=== PATIENT | female | born 1965 | race Caucasian/White ===

== ENCOUNTER 2016-05-30 09:07 | Outpatient (CLI) ==
[2016-05-30 09:38] LABS: HEMATOCRIT 36.4 % (37.0-47.0); HEMOGLOBIN 11.7 g/dl (12.0-16.0); MEAN CORPUSCULAR HEMOGLOBIN 30.3 pg (27.0-31.0); MEAN CORPUSCULAR HGB CONC 32.1 (31.8-35.4); MEAN CORPUSCULAR VOLUME 94.3 fl (81.0-99.0); RED BLOOD COUNT 3.86 10^6/ul (4.20-5.40); WHITE BLOOD COUNT 5.08 K/ul (4.6-10.2)
[2016-05-30 09:56] LABS: ALBUMIN 3.7 g/dL (3.4-5.0); ALBUMIN/GLOBULIN RATIO 0.95; ANION GAP 10.1; BILIRUBIN,TOTAL 0.33 mg/dL (0.00-1.20); BUN/CREATININE RATIO 15.66; CALCIUM 9.1 mg/dL (8.2-10.2); CREATININE 0.83 mg/dL (0.60-1.30); POTASSIUM 4.1 mmol/L (3.5-5.10); TOTAL PROTEIN 7.6 g/dL (6.4-8.2)
== END 2016-05-30 09:08 | disposition home or self-care (01) ==
LOC: LAB 09:07
PROVIDERS: ATTEND Nurse Practitioner Family
DX: B18.2 Chronic viral hepatitis C (principal)
CPT/HCPCS: 36415; 80053; 85027; 87522

== ENCOUNTER 2016-06-19 13:19 | Outpatient (CLI) ==
--- NOTE | 2016-06-19 14:26 | US ---
EXAM: Pelvic ultrasound. History: Pelvic mass. Comparison: None available. Technique: Multiple sonographic images through the pelvis were obtained. Color duplex Doppler was used to interrogate vascular flow. Findings: The uterus measures 7.5 cm x 4.3 cm x 6.7 cm. There are at least two heterogeneous uterine masses c ontaining calcification and shadowing with the largest measuring 4.8 cm. Neither ovary is enlarged. Small dominant follicle within the left ovary measuring 0.6 cm. The endometrium measures 0.4 cm in thickness. Trace fluid seen within the cul-de-sac. Impression: 1. Partially calcified uterine masses most likely represent fibroids. 2. Trace fluid in the cul-de-sac.
== END 2016-06-19 13:20 | disposition home or self-care (01) ==
LOC: RAD 13:19
PROVIDERS: ATTEND Family Medicine
DX: R19.00 Intra-abdominal and pelvic swelling, mass and lump, unspecified site (principal)

== ENCOUNTER 2016-06-20 08:51 | Outpatient (CLI) ==
--- NOTE | 2016-06-20 10:08 | MAMMO ---
EXAM: Digital screening mammogram HISTORY: Screening mammogram COMPARISON: Diagnostic mammogram 10/29/2014 and screening mammogram 10/16/2014 and screening mammogr am 08/20/2008 FINDINGS: Bilateral CC and MLO views of the breasts were performed digitally and demonstrate scatte red fibroglandular breast density (25 - 50%). There is mildly dense parenchyma in the superior later al bilateral breasts. Calcifications are identified in both breasts and unchanged from previous exa mination. There is no abnormal nodule or calcification. There is no significant interval change. IMPRESSION: No new or suspicious calcification or nodule RECOMMENDATION: Annual screening mammogram BIRADS category II: Benign findings
== END 2016-06-20 08:52 | disposition home or self-care (01) ==
LOC: RAD 08:51
PROVIDERS: ATTEND Family Medicine
DX: Z12.31 Encounter for screening mammogram for malignant neoplasm of breast (principal)

== ENCOUNTER 2016-08-21 16:32 | Outpatient (CLI) ==
[2016-08-21 16:44] LABS: HEMATOCRIT 38.9 % (37.0-47.0); MEAN CORPUSCULAR HEMOGLOBIN 31.2 pg (27.0-31.0); MEAN CORPUSCULAR HGB CONC 33.4 (31.8-35.4); MEAN CORPUSCULAR VOLUME 93.3 fl (81.0-99.0); RED BLOOD COUNT 4.17 10^6/ul (4.20-5.40); WHITE BLOOD COUNT 5.35 K/ul (4.6-10.2)
[2016-08-21 17:03] LABS: ALBUMIN 3.9 g/dL (3.4-5.0); ALBUMIN/GLOBULIN RATIO 1.03; ANION GAP 10.9; BILIRUBIN,TOTAL 0.32 mg/dL (0.00-1.20); BUN/CREATININE RATIO 14.94; CALCIUM 9.4 mg/dL (8.2-10.2); CREATININE 0.87 mg/dL (0.60-1.30); POTASSIUM 3.9 mmol/L (3.5-5.10); TOTAL PROTEIN 7.7 g/dL (6.4-8.2)
== END 2016-08-21 16:33 | disposition home or self-care (01) ==
LOC: LAB 16:32
PROVIDERS: ATTEND Nurse Practitioner Family
DX: B18.2 Chronic viral hepatitis C (principal)
CPT/HCPCS: 36415; 80053; 85027; 87522

== ENCOUNTER 2016-11-12 08:49 | Outpatient (CLI) ==
[2016-11-12 09:03] LABS: HEMOGLOBIN 13.3 g/dl (12.0-16.0); MEAN CORPUSCULAR HGB CONC 33.3 (31.8-35.4); MEAN CORPUSCULAR VOLUME 96.2 fl (81.0-99.0); RED BLOOD COUNT 4.16 10^6/ul (4.20-5.40); WHITE BLOOD COUNT 6.03 K/ul (4.6-10.2)
[2016-11-12 09:22] LABS: ALBUMIN 3.9 g/dL (3.4-5.0); ALBUMIN/GLOBULIN RATIO 1.03; BILIRUBIN,TOTAL 0.42 mg/dL (0.00-1.20); BUN/CREATININE RATIO 13.33; CALCIUM 9.3 mg/dL (8.2-10.2); CREATININE 0.9 mg/dL (0.60-1.30); TOTAL PROTEIN 7.7 g/dL (6.4-8.2)
== END 2016-11-12 08:50 | disposition home or self-care (01) ==
LOC: LAB 08:49
PROVIDERS: ATTEND Nurse Practitioner Family
DX: B18.2 Chronic viral hepatitis C (principal)
CPT/HCPCS: 36415; 80053; 85027; 87522

== ENCOUNTER 2017-07-18 13:37 | Outpatient (CLI) ==
--- NOTE | 2017-07-19 11:56 | MAMMO ---
EXAM: Bilateral digital screening mammogram (2-D and 3-D) History: Screening Comparison: Bilateral mammogram 06/20/2016 Findings: MLO and CC views of bilateral breasts demonstrate scattered fibroglandular breast parenchy ma. CAD was reviewed by the radiologist. Tomosynthesis was performed. Stable benign right breast c alcifications. There are no dominant masses, no suspicious microcalcifications and no architectural distortions. Impression: Benign stable mammogram. Recommend followup routine screening mammography in 1 year. BIRADS 2
== END 2017-07-18 13:38 | disposition home or self-care (01) ==
LOC: RAD 13:37
PROVIDERS: ATTEND Family Medicine
DX: Z12.31 Encounter for screening mammogram for malignant neoplasm of breast (principal)
CPT/HCPCS: 77067